=== PATIENT | male | born 1945 | race Caucasian/White ===

== ENCOUNTER 2016-06-08 10:37 | Outpatient (CLI) | payer MEDICARE, BC ==
[2016-06-08 12:06] LABS: #Basophils 0.1 thou/uL (0.0-0.2); #Eosinphils 0.1 thou/uL (0.0-0.7); #Lymphocytes 3.3 thou/uL (1.20-3.40); #Monocytes 0.7 thou/uL (0.11-0.59); #Neutrophils 4.3 thou/uL (1.40-6.50); %Basophils 0.8 % (0.0-1.0); %Eosinophils 1.5 % (0.0-10.0); %Monocytes 8.1 % (0.0-10.0); Hematocrit 49.2 % (42.0-52.0); Red Blood Cell (RBC) Count 4.84 mill/uL (4.70-6.10); White Blood Cell (WBC) Count 8.5 thou/uL (4.8-10.8)
[2016-06-08 12:14] LABS: ALT (SGPT) 11 U/L (0-55); AST (SGOT) 16 U/L (5-34); Alkaline Phosphatase 83 U/L (40-150); Anion Gap 14 mmol/L (10-20); BUN (Urea Nitrogen) 12 mg/dL (8.4-25.7); Bilirubin, Total 0.8 mg/dL (0.2-1.2); Calc. Creatinine Clearance 0 mL/min (70-130); Calcium 9.6 mg/dL (7.8-10.44); Carbon Dioxide 24 mmol/L (23-31); Chloride 104 mmol/L (98-107); Estimated GFR-MDRD Greater than 90; Globulin 2.6 g/dL (2.4-3.5); LDL Cholesterol, Calculated 86 mg/dL; Protein, Total 7.1 g/dL (5.8-8.1)
== END 2016-06-08 10:38 ==
LOC: HPCALD 10:37
PROVIDERS: ATTEND Family Medicine
DX: E78.2 Mixed hyperlipidemia (principal); D75.89 Other specified diseases of blood and blood-forming organs; E87.1 Hypo-osmolality and hyponatremia
CPT/HCPCS: 36415; 80053; 80061; 85025

== ENCOUNTER 2016-09-18 14:34 | Emergency (ER) | payer MEDICARE, BC ==
[2016-09-18] MEDS ORDERED: HYDROcodone/Acetaminophen 10/325 mg Tablet ONE (14:57)
[2016-09-18] MEDS ORDERED: Ibuprofen 800 MG TAB ONE (14:57)
[2016-09-18] MEDS ORDERED: Bupivacaine 0.5% 10 ML VIAL ONE (15:01)
[2016-09-18] MEDS ORDERED: Lidocaine 1% w/Epinephrine 1:100K 30 ML VIAL ONE (15:01)
--- NOTE | 2016-09-18 21:23 | RAD ---
LEFT WRIST THREE VIEWS 09/18/16 An impacted fracture of the distal radius is present with posterior displacement of the distal fragm ent. The ulnar styloid appears intact. Severe arthritic changes are seen in the first carpometacarpa l joint, probably due to prior injury here. The scaphoid is misshapen but it does not appear acute. IMPRESSION: 1. Impacted displaced fracture of the distal radius. 2. 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 Old trauma here is probable. POS: HOME
--- NOTE | 2016-09-18 21:24 | RAD ---
LEFT WRIST THREE VIEWS 09/18/16 Post reduction reviews show slightly less displacement of the distal radial fracture. A splint has b een applied. No new injuries are noted. IMPRESSION: Slight improvement of the displaced fracture of the distal radius. POS: HOME
== END 2016-09-18 16:24 | disposition home or self-care (01) ==
LOC: BURERS 14:34
DX: S52.502A Unspecified fracture of the lower end of left radius, initial encounter for closed fracture (principal); S60.212A Contusion of left wrist, initial encounter; I10 Essential (primary) hypertension; E78.5 Hyperlipidemia, unspecified; F17.210 Nicotine dependence, cigarettes, uncomplicated; W18.30XA Fall on same level, unspecified, initial encounter
CPT/HCPCS: 29125; J2001; J3490